=== PATIENT | female | born 1955 | race Caucasian/White ===

== ENCOUNTER → 2016-11-10 | Outpatient (CLI) | payer OTHER ==
--- NOTE | 2016-11-10 15:31 | CT ---
CT Left Lower Extremity Without Intravenous Contrast History: Unilateral primary osteoarthritis left hip, M16.12. Technique: Noncontrast axial computed tomographic images of the pelvis and bilateral femurs with sagi ttal and coronal reconstructions of the hip joints and pelvis. Dose reduction technique utilized. Findings: Severe osteoarthritis left hip with severe joint space narrowing superiorly, acetabular and femoral head remodeling, sclerosis, osteophytes and subchondral cystic geodes. Complete loss of join t space superiorly. Right hip joint demonstrates mild osteoarthritis with slight acetabular sclerosis, joint space narrow ing and small osteophytes. No pathologic fractures are. Moderate bilateral facet arthropathy at L4-L5 and mild bilateral facet a rthropathy L5-S1. Bilateral knee joints on the axial images demonstrate bilateral lateral patellar tilt and subluxation s with severe left lateral patellofemoral joint space narrowing. Impression: 1. Severe osteoarthritis left hip. 2. Mild osteoarthritis right hip. 3. Bilateral abnormal patellar tracking with moderate to severe left lateral patellofemoral degenerat jermaine arthropathy.
== END ==
LOC: FIMAGING 13:45
PROVIDERS: ATTEND Orthopaedic Surgery
DX: M16.12 Unilateral primary osteoarthritis, left hip (principal)

== ENCOUNTER 2016-11-24 08:18 | Inpatient (IN) | payer OTHER ==
[~2016-11-24 08:18] MED LIST: ACETAMINOPHEN 325 MG TAB PO ONE; CEFAZOLIN 2 GM/DEXTR 100 ML IV ONE; CHLORHEXIDINE GLUC HIBICLENS 118 ML BTL TP ONE; DEXAMETHASONE 4 MG/ML VIAL IVP ONE; FAMOTIDINE 20 MG TAB PO ONE; ROPI/epiNEPH/KETOROLAC JOINT COCKTAIL IU ONE; SKIN ADHESIVE (DERMABOND) 1 EACH TP ONE; TRANEXAMIC ACID 3,000 MG in NS 50 ML IRR ONE; TRANEXAMIC ACID 3,000 MG/50 ML BAG IRR ONE
[2016-11-24] MEDS ORDERED: FAMOTIDINE 20 MG TAB ONE (09:07)
[2016-11-24] MEDS ORDERED: LIDOCAINE 1% 5 ML SDV ONE (09:07)
[2016-11-24] MEDS ORDERED: CEFAZOLIN 2 GM/DEXTROSE/100 ML BAG IV ONE (09:07)
[2016-11-24] MEDS ORDERED: ACETAMINOPHEN 325 MG TAB ONE (09:07)
[2016-11-24] MEDS ORDERED: DEXAMETHASONE 4 MG/ML VIAL ONE (09:07)
[2016-11-24] MEDS ORDERED: LIDOCAINE 1% 5 ML SDV ID PRN (09:41)
[2016-11-24] MEDS ORDERED: LR 1,000 ML IV ONE (09:41)
[2016-11-24] MEDS ORDERED: MIDAZOLAM 2 MG/2 ML VIAL ONE (10:28)
[2016-11-24] MEDS ORDERED: PROPOFOL 200 MG/20 ML VIAL ONE ×3 (10:33→11:28)
[2016-11-24] MEDS ORDERED: PHARMACY PAIN CONSULT 1 EA MISC PRN (11:47)
[2016-11-24] MEDS ORDERED: BISACODYL 10 MG SUPP PR PRN (11:47)
[2016-11-24] MEDS ORDERED: LACTULOSE 20 GM/30 ML UDCUP PO PRN (11:47)
[2016-11-24] MEDS ORDERED: POLYETHYLENE GLYCOL 3350 17 GM PKT PO PRN (11:47)
[2016-11-24] MEDS ORDERED: diphenhydrAMINE 25 MG CAP PO PRN (11:47)
[2016-11-24] MEDS ORDERED: CYCLOBENZAPRINE 10 MG TAB PO PRN (11:47)
[2016-11-24] MEDS ORDERED: MAGNESIUM HYDROXIDE 30 ML UDCUP PO PRN (11:47)
[2016-11-24] MEDS ORDERED: PROMETHAZINE HCL 25 MG/ML INJ IVP PRN (11:47)
[2016-11-24] MEDS ORDERED: PROMETHAZINE HCL 25 MG SUPPR PR PRN (11:47)
[2016-11-24] MEDS ORDERED: ONDANSETRON DISINTEGRATING 4 MG TAB PO PRN (11:47)
[2016-11-24] MEDS ORDERED: ONDANSETRON 4 MG/2 ML VIAL IVP PRN (11:47)
[2016-11-24] MEDS ORDERED: TEMAZEPAM 15 MG CAP PO PRN (11:47)
[2016-11-24] MEDS ORDERED: DIPHENOXYLATE/ATROPINE LOMOTIL 1 TAB PO PRN (11:47)
[2016-11-24] MEDS ORDERED: METOCLOPRAMIDE 10 MG/2 ML VIAL IVP PRN (11:47)
--- NOTE | 2016-11-24 11:47 | POSTOPPROG ---
Post Op Note Date of Operation: 11/24/16 Surgeon: Eloy Norman Manager Enrollment: corinne norman Anesthesiologist: dr. peguero Anesthesia: Spinal Pre-op Diagnosis: left hip OA Post-op Diagnosis: same Indication: left hip pain due to OA that failed conservative measures Procedure: L TOYIN ant approach Findings: severe hip OA Inf/Abcess present in the surg proc area at time of surgery?: No EBL: 100-500
[2016-11-24] MEDS ORDERED: fentaNYL 100 MCG/2 ML INJ ONE (12:13)
[2016-11-24] MEDS ORDERED: ceFAZolin 2 GM/DEXTROSE 100 ML IV SCH (14:00)
--- NOTE | 2016-11-24 14:22 | DX ---
AP pelvis History: Postoperative follow up left hip arthroplasty. Comparison: CT lower extremity November 10, 2016. Findings: Postoperative changes of recent total hip arthroplasty are noted. Alignment is satisfactory and there is no visible complication. Mild osteoarthritis is present in the right hip. Mild degenera tive change is noted in the sacroiliac joints. Impression: Status post hip arthroplasty with no visible complication.
[2016-11-24] MEDS: ACETAMINOPHEN 325 MG TAB PO SCH ×3 (14:30→18:59)
[2016-11-24] MEDS: oxyCODONE IR 5 MG TAB PO PRN ×3 (15:06→21:59)
[2016-11-24] MEDS: LR 1,000 ML IV SCH (16:10)
--- NOTE | 2016-11-24 17:36 | DX ---
Intraoperative fluoroscopy during left hip arthroplasty. November 24, 2016. Discussion: 1.3 seconds intraoperative fluoroscopy utilized by Dr. Burgos during left hip arthropl asty. Matrix radiograph obtained during the procedure demonstrates [facility] Impression: Intraoperative fluoroscopy during left hip arthroplasty.
[2016-11-24] MEDS: ceFAZolin 2 GM in D5W 100 ML IV SCH (18:37)
[2016-11-24] MEDS: FAMOTIDINE 20 MG TAB PO SCH (20:27)
[2016-11-24] MEDS: SENNOSIDES/DOCUSATE SODIUM TAB PO SCH (20:27)
[2016-11-24] MEDS: ASPIRIN 325 MG TAB PO SCH (20:27)
[2016-11-25] MEDS: oxyCODONE IR 5 MG TAB PO PRN ×4 (01:02→11:10)
[2016-11-25] MEDS: ACETAMINOPHEN 325 MG TAB PO SCH ×3 (01:02→11:09)
[2016-11-25] MEDS: LR 1,000 ML IV SCH (02:47)
[2016-11-25] MEDS: ceFAZolin 2 GM in D5W 100 ML IV SCH (02:47)
[2016-11-25 05:25] LABS: HEMOGLOBIN 11.8 g/dL (12.6-16.3)
--- NOTE | 2016-11-25 05:56 | GOP ---
[f rep st] OPERATIVE REPORT DATE OF OPERATION: 11/24/2016 SURGEON: Jarrell Burgos MD SATELLITE TELEVISION INSTALLER: SAM Doyle ANESTHESIA: Spinal. PREOPERATIVE DIAGNOSIS: Left hip osteoarthritis. POSTOPERATIVE DIAGNOSIS: Left hip osteoarthritis. PROCEDURE PERFORMED: Left total hip arthroplasty. FINDINGS: ESTIMATED BLOOD LOSS: 200 cc. INDICATIONS: The patient has progressively worsening arthritis of the hip which has failed medical management. The patient understands the treatment options including continued non-operative care and has selected surgical intervention. The patient has decided to undergo total hip arthroplasty via the direct anterior approach, understanding the risks of the procedure including , but not limited to, neurovascular injury, infection, persistent pain, component wear and loosening, deep venous thrombosis, pulmonary embolism, limb length inequality, hip instability (including dislocation), and intra-operative fractures. DESCRIPTION OF PROCEDURE: After proper identification of the patient including verification and marking the surgical site, the patient was brought to the operating room and placed in the supine position. All bony prominences were well padded. Anesthesia was induced without complication and intravenous prophylactic antibiotics were administered prior to skin incision. The operative leg was placed in the Trumpf Arch table extension and the well leg in a Yellofin leg dhillon. The patient was prepped and draped in the usual sterile fashion. The C-arm was draped for intra-operative fluoroscopy to check acetabular position, femoral component position including leg length and femoral offset. Attention was then drawn to surgical exposure of the hip. An incision was made with a #10 Bard Vijay blade starting 3 cm lateral and 3 cm distal to the anterior superior iliac spine measuring 8-10 cm and coursing distally toward the greater trochanter. The skin and subcutaneous tissues were divided sharply down to the fascia susy. The fascia susy was incised in line with the skin incision exposing the underlying tensor fascia susy muscle. The muscle was bluntly elevated from the fascia and the first extracapsular Cobra retractor was placed laterally at the junction of the superior femoral neck and greater trochanter. The lateral femoral circumflex vessels were identified, cauterized , and divided with the Aquamantys bipolar cautery. The deep investing fascia of the TFL was divided to allow proper mobilization of the muscle preventing damage during the retraction. The reflected head of the rectus femoris muscle was elevated off the anterior hip capsule and a medial Cobra retractor was placed just proximal to the lesser trochanter. The anterior capsulotomy was made sharply from the superolateral acetabulum to the saddle junction of the superior femoral neck and greater trochanter, then coursing inferomedial towards the lesser trochanter. The retractors were then placed in the intracapsular position for femoral neck osteotomy. Corresponding to pre-operative templating, the osteotomy was made with the oscillating saw carefully protecting the greater trochanter and soft tissues. The femoral head was removed from the acetabulum with a corkscrew and confirmed to be severely arthritic with exposed bone, deformity and osteophytes. Similar findings were confirmed in the acetabulum. The Arch table extension was then placed in 40 degrees external rotation. Attention was then drawn to the acetabular preparation. After placement of the anterior and posterior Cobra retractors outside the labrum and intracapsular, the circumferential labrum was removed sharply. The foveal contents were then removed and hemostasis obtained with cautery. The first reamer selected was sized using the removed femoral head. Reaming began with medialization and then commenced in 2 mm increments at 45 degrees of abduction and 15 degrees of anteversion using fluoroscopic navigation. Reaming ceased 1 mm less than the definitive acetabular component and corresponded to the pre-operative templating. The final acetabular component was inserted using fluoroscopy to achieve proper orientation yielding excellent purchase and stability in the acetabulum. The final acetabular liner was then placed and its seating confirmed. Attention was then turned to the femur. The Arch table extension was placed in extension and adduction, delivering the osteotomized femoral neck into the wound. A 2-pronged femoral elevator was placed at the calcar and another at the tip of the greater trochanter. The posterolateral capsule was released with cautery allowing mobilization of the femur lateral and anterior for preparation. The external rotators were visualized and preserved. A curette and rongeur were used to open the starting point for broaching. Serial broaching started with the #0 broach and ended with the broach that exhibited excellent fit in the proximal femur. A change in pitch during mallet strikes was accompanied by the inability to advance the broach any further. The trial reduction was performed and fluoroscopic navigation was utilized to check limb length. Adjustments were made to equalize limb length accordingly. After the final trials were accepted they were removed and the wound was copiously lavaged. The femoral component was seated to the same depth as the final broach and the femoral head was impacted onto the clean trunnion. The hip was then reduced for the final time and once more fluoroscopy was used to check that limb length equality was achieved. The wound was irrigated and closed in layers, the fascia susy with 2-0 Quill, the subcutaneous tissue with 2-0 Quill, and the skin with Dermabond. Sterile dressings were applied. Final sharps and sponge counts were accurate. The patient was then transferred to a hospital bed and brought to the recovery room in stable condition. IMPLANTS: Accolade II size 3 x 127, acetabular component, 52 mm Tritanium. The linear is a Trident X3 32 mm. The head is a Biolox Delta 32 mm +4. /[id number]/MODL MTDD
[2016-11-25 07:28] VITALS: PULSE 65; RESP 18; TEMP 98.1; O2SAT 95
[2016-11-25] MEDS: ASPIRIN 325 MG TAB PO SCH (07:58)
[2016-11-25] MEDS: FAMOTIDINE 20 MG TAB PO SCH (07:59)
[2016-11-25] MEDS: SENNOSIDES/DOCUSATE SODIUM TAB PO SCH (07:59)
--- NOTE | 2016-11-25 09:25 | SOAPPROG ---
SOAP Progress Note Assessment/Plan: Assessment: Patient is doing well POD 1 s/p L TOYIN 1.Pain management: pain is well controlled on oral pain meds 2.Anemia: level is expected initially postop. Asymptomatic. Cont to monitor for symptoms 3.VTE ppx: recommend aspirin 325mg daily. Cont PADMINI hosjulia and SCD 4. d/c planning: d/c to home today pending release from PT. Plan: 11/25/16 09:24 Subjective: Madalyn is doing well today, denies SOB, chest pain and N/V. Objective: Vital Signs Temp Pulse Resp BP Pulse Ox 36.7 C 65 18 94/64 L 95 11/25/16 07:27 11/25/16 07:27 11/25/16 07:27 11/25/16 07:27 11/25/16 07:27 Laboratory Results 11/25/16 04:48 11/24/16 11/25/16 11/26/16 05:59 05:59 05:59 Intake Total 2100 1600 Output Total 1350 200 Balance 750 1400 LLE: incision dressing is clean and dry, NVI, +pf/df ICD10 Worksheet Patient Problems: Problems Problem Status Diagnosed Primary localized osteoarthritis of left hip Acute
--- NOTE | 2016-11-25 11:01 | GDS ---
[f rep st] DISCHARGE SUMMARY ADMISSION DIAGNOSIS: Left hip osteoarthritis. DISCHARGE DIAGNOSIS: Left hip osteoarthritis. PROCEDURE: Left total hip arthroplasty. VTE PROPHYLAXIS: Aspirin recommended for 3 weeks daily. BRIEF DESCRIPTION OF HOSPITAL STAY: Patient was admitted for an elective joint arthroplasty. The pa tient tolerated the procedure well and has passed physical therapy. The patient was given appropriat e antibiotic prophylaxis and venous thromboembolism prophylaxis. The patient's pain was well control led on oral pain medication, patient was holding down food, and had urinated. Decision was made to d ischarge the patient. The patient was given post-operative prescriptions pre-operatively. PLAN: Please follow up as scheduled at Dr. Burgos's office on December 16 at 1:30 p.m. /[id number]/MODL
[2016-11-25 12:03] VITALS: BP 104/61
== END 2016-11-25 12:45 | disposition home or self-care (01) | DRG 470 ==
LOC: F3N 08:18 → EEVIPCON 10:15 → F3N 14:53
PROVIDERS: ADMIT Orthopaedic Surgery; ATTEND Orthopaedic Surgery
PROC: 0SRB04Z Replacement of Left Hip Joint with Ceramic on Polyethylene Synthetic Substitute, Open Approach (ICD-10-PCS; principal; 2016-11-24 10:15)
DX: M16.12 Unilateral primary osteoarthritis, left hip (principal); E78.00 Pure hypercholesterolemia, unspecified; Z79.890 Hormone replacement therapy
CPT/HCPCS: 97110-GP; 97116-GP; 97161-GP; 97165-GO; J0171; J0690; J1100; J1885; J2250; J2704; J2795; J3010

== ENCOUNTER → 2017-08-30 | Outpatient (CLI) | payer OTHER | LOC: BMCIMAGING 13:52 | PROVIDERS: ATTEND Nurse Practitioner Women's Health | DX: Z13.820 Encounter for screening for osteoporosis (principal); M85.80 Other specified disorders of bone density and structure, unspecified site ==

== ENCOUNTER → 2018-12-26 | Outpatient (CLI) | payer OTHER | LOC: FIMAGING 09:23 | PROVIDERS: ATTEND Obstetrics & Gynecology | DX: Z12.31 Encounter for screening mammogram for malignant neoplasm of breast (principal); Z80.3 Family history of malignant neoplasm of breast ==